=== PATIENT | female | born 1940 | race African-American/Black ===

== ENCOUNTER 2017-11-19 09:29 | Inpatient (IN) | payer MEDICARE, MEDICAID ==
[~2017-11-19] VITALS: Ht 160 cm; Wt 63.5 kg
[~2017-11-19 09:29] MED LIST: SEE MED SHEET
[2017-11-19] MEDS ORDERED: ASPIRIN 81MG TABLET PO STA (10:35)
[2017-11-19] MEDS ORDERED: ONDANSETRON HCL 4MG/2ML VIAL IV STA (10:35)
[2017-11-19] MEDS ORDERED: MORPHINE SULFATE 2 MG/ML CPJ (NOT FOR IM USE) IV ONE (10:45)
[2017-11-19 11:09] LABS: CLARITY URINE CLEAR (CLEAR); COLOR URINE YELLOW (YELLOW); KETONES URINE NEGATIVE (NEGATIVE); LEUKOCYTE ESTERASE URINE NEGATIVE (NEGATIVE); NITRITE URINE NEGATIVE (NEGATIVE); OCCULT BLOOD URINE NEGATIVE (NEGATIVE); PROTEIN URINE NEGATIVE (NEGATIVE); SPECIFIC GRAVITY URINE 1.009 (1.005-1.030); UROBILINOGEN URINE 0.2 E.U./dL (0.2-1.0)
[2017-11-19 11:17] LABS: BASOPHILS % 0.8 % (0.0-2.0); EOSINOPHILS % 0.7 % (0.0-5.0); HEMATOCRIT. 35.3 % (36.0-48.0); HEMOGLOBIN. 11.7 g/dL (12.0-16.0); LYMPHOCYTES % 10.7 % (20.0-50.0); MEAN CORPUSCULAR HEMOGLOBIN 29.1 pg (28.0-32.0); MEAN CORPUSCULAR VOLUME 87.9 fL (81.0-99.0); MEAN PLATELET VOLUME 8.7 fl (7.4-10.4); MONOCYTES % 5.9 % (2.0-8.0); NEUTROPHILS % 81.9 % (40.0-76.0); PLATELET 315 x1000/uL (130-400); RED BLOOD CELL COUNT 4.02 mill/uL (4.2-5.4); RED CELL DISTRIBUTION WIDTH 12.9 % (11.6-14.6)
[2017-11-19 11:26] LABS: CARBON DIOXIDE 32 mEq/L (21-32); CHLORIDE 103 mEq/L (98-107); TROPONIN I < 0.02 ng/mL (0.00-0.04)
[2017-11-19 11:34] LABS: D-DIMER 1.91 mg/L FEU (<0.50); PARTIAL THROMBOPLASTIN TIME 24.8 sec (23.4-31.0); PROTHROMBIN TIME 10.7 sec (9.4-11.6)
[2017-11-19] MEDS ORDERED: POTASSIUM CHLORIDE 20MEQ TABLET SR PO ONE (12:00)
[2017-11-19] MEDS ORDERED: IOHEXOL-350 100 ML BOTTLE ONE (13:57)
[2017-11-19 17:50] VITALS: BP 133/64
[2017-11-19] MEDS ORDERED: TRAMADOL 50MG TABLET PO PRN (18:00)
[2017-11-19 20:00] VITALS: BP 111/46
[2017-11-19 20:17] LABS: TROPONIN I < 0.02 ng/mL (0.00-0.04)
[2017-11-19 20:18] LABS: CREATINE KINASE MB FRACTION 1.7 ng/mL (0.5-3.6)
[2017-11-20] VITALS (7 sets, daily range): BP systolic 121–146; BP diastolic 53–72
[2017-11-20 06:41] LABS: BASOPHILS % 0.9 % (0.0-2.0); EOSINOPHILS % 1.6 % (0.0-5.0); HEMATOCRIT. 32.2 % (36.0-48.0); HEMOGLOBIN. 10.6 g/dL (12.0-16.0); LYMPHOCYTES % 16.1 % (20.0-50.0); MEAN CORPUSCULAR HEMOGLOBIN 28.9 pg (28.0-32.0); MEAN CORPUSCULAR VOLUME 87.7 fL (81.0-99.0); MEAN PLATELET VOLUME 9.3 fl (7.4-10.4); MONOCYTES % 7.1 % (2.0-8.0); NEUTROPHILS % 74.3 % (40.0-76.0); PLATELET 288 x1000/uL (130-400); RED BLOOD CELL COUNT 3.67 mill/uL (4.2-5.4); RED CELL DISTRIBUTION WIDTH 13.1 % (11.6-14.6)
[2017-11-20 07:57] LABS: CARBON DIOXIDE 32 mEq/L (21-32); CHLORIDE 108 mEq/L (98-107); CREATINE KINASE MB FRACTION 1.2 ng/mL (0.5-3.6); HDL CHOLESTEROL 43 mg/dL (40-59); TROPONIN I < 0.02 ng/mL (0.00-0.04)
[2017-11-20 08:00] LABS: LDL CHOLESTEROL 44 mg/dL (5-100); TOTAL IRON BINDING CAPACITY 271 ug/dL (250-450)
[2017-11-20 08:34] LABS: VITAMIN B12 SERUM 474 pg/mL (211-911)
[2017-11-20] MEDS ORDERED: ASPIRIN 81MG TABLET PO SCH (09:00)
[2017-11-20 15:45] LABS: TROPONIN I < 0.02 ng/mL (0.00-0.04)
== END 2017-11-20 22:10 | disposition home or self-care (01) | DRG 641 ==
LOC: ER 09:46 → 7WST 11:54 → EDBEDREQ 11:56 → ENRESERV 16:29
PROVIDERS: ADMIT Internal Medicine Critical Care Medicine; ATTEND Internal Medicine Critical Care Medicine
DX: E87.6 Hypokalemia (principal); E11.9 Type 2 diabetes mellitus without complications; G30.9 Alzheimer's disease, unspecified; L02.412 Cutaneous abscess of left axilla; J44.9 Chronic obstructive pulmonary disease, unspecified; F02.80 Dementia in other diseases classified elsewhere, unspecified severity, without behavioral disturbance, psychotic disturbance, mood disturbance, and anxiety; E61.1 Iron deficiency; I11.9 Hypertensive heart disease without heart failure; R07.89 Other chest pain; I25.10 Atherosclerotic heart disease of native coronary artery without angina pectoris; M19.90 Unspecified osteoarthritis, unspecified site; L02.422 Furuncle of left axilla; Z96.1 Presence of intraocular lens; Z90.710 Acquired absence of both cervix and uterus; Z79.899 Other long term (current) drug therapy; Z79.82 Long term (current) use of aspirin; Z98.42 Cataract extraction status, left eye; Z98.41 Cataract extraction status, right eye; Z88.8 Allergy status to other drugs, medicaments and biological substances
CPT/HCPCS: 36415; 71045; 71275; 80053; 80061; 81003; 82553; 82607; 82962; 83540; 83550; 83690; 83880; 84443; 84484; 85025; 85379; 85610; 85730; 93005; 96374; 96375; 99285; J2270; J2405; Q9967